=== PATIENT | male | born 1960 | race Caucasian/White ===

== ENCOUNTER → 2021-07-07 | Outpatient (CLI) | payer BC | END | disposition home or self-care (01) | LOC: RAH 10:45 | PROVIDERS: ATTEND Nurse Practitioner Family | DX: M17.0 Bilateral primary osteoarthritis of knee (principal); M71.21 Synovial cyst of popliteal space [Baker], right knee | CPT/HCPCS: 93925 ==

== ENCOUNTER → 2021-09-30 | Outpatient (CLI) | payer BC | END | disposition home or self-care (01) | LOC: RAH 14:35 | PROVIDERS: ATTEND Orthopaedic Surgery | DX: M17.12 Unilateral primary osteoarthritis, left knee (principal); M19.072 Primary osteoarthritis, left ankle and foot; M16.12 Unilateral primary osteoarthritis, left hip; M25.752 Osteophyte, left hip; M85.88 Other specified disorders of bone density and structure, other site | CPT/HCPCS: 73700 ==

== ENCOUNTER 2021-10-05 08:38 | Observation (INO) | payer BC ==
[2021-09-29 11:57] LABS: BASOPHILS % (AUTO) 0.6 % (0.0-5.0); EOSINOPHILS % (AUTO) 2.8 % (0.0-8.0); HEMATOCRIT 40.4 % (42-54); LYMPHOCYTES % (AUTO) 23.3 % (21.0-51.0); MEAN CORPUSCULAR HEMOGLOBIN 31.6 pg (27.0-33.0); MEAN CORPUSCULAR HGB CONC 33.7 g/dL (32.0-36.0); MEAN CORPUSCULAR VOLUME 93.7 fL (79-99); MONOCYTES % (AUTO) 9.1 % (3.0-13.0); NEUTROPHILS % (AUTO) 63.9 % (40.0-77.0); PLATELET COUNT (AUTO) 209 K/uL (130-400); RED BLOOD CELL COUNT(AUTO) 4.31 MIL/uL (4.50-6.20); RED CELL DISTRIBUTION WIDTH 13.1 % (11.0-15.5); WHITE BLOOD COUNT (AUTO) 9.4 K/uL (4.8-10.8)
[2021-09-29 12:10] LABS: INR 0.98 (0.85-1.15); PROTHROMBIN TIME 10.7 SEC (9.6-11.6)
[2021-09-29 12:11] LABS: CREATININE 0.7 mg/dL (0.5-1.5); PARTIAL THROMBOPLASTIN TIME 29.2 SEC (26.3-35.5); POTASSIUM 3.9 mmol/L (3.5-5.1)
[2021-10-04 11:02] VITALS: BP 156/81
[~2021-10-05] VITALS: Ht 180.3 cm; Wt 99.4 kg
[2021-10-05] VITALS (25 sets, daily range): BP systolic 119–171; BP diastolic 72–103
[2021-10-05] MEDS: CEFAZOLIN SODIUM 2 GM VIAL IV SCH ×3 (05:00→18:23)
[~2021-10-05 08:38] MED LIST: AEC81 PO; ATOR20TA PO; DULO60CA45 PO; HYDR12.54 PO; MULT-1258 PO; OMEG-116 PO
[2021-10-05] MEDS ORDERED: CEFAZOLIN SODIUM 1 GM VIAL ONE (08:52)
[2021-10-05] MEDS ORDERED: LACTATED RINGERS 1000ML 1,000 ML IV ONE (08:53)
[2021-10-05] MEDS ORDERED: PROPOFOL 10 MG/ML 20ML VIAL IV ONE (10:51)
[2021-10-05] MEDS ORDERED: FENTANYL CITRATE PF 50 MCG/1 ML 2ML VIAL ONE ×2 (10:51→14:27)
[2021-10-05] MEDS ORDERED: SUCCINYLCHOLINE CHLORIDE 20 MG/ML 10 ML VIAL ONE (10:51)
[2021-10-05] MEDS ORDERED: ROCURONIUM 10MG/1ML SYR 10 MG/ML ML ONE ×2 (10:51→11:43)
[2021-10-05] MEDS ORDERED: MIDAZOLAM HCL 1 MG/ML 2ML VIAL ONE (10:51)
[2021-10-05] MEDS ORDERED: LIDOCAINE PF 100MG/5ML (2%) SYRINGE 5ML ONE (10:51)
[2021-10-05] MEDS ORDERED: ROPIVACAINE 0.5% 5MG/ML 30ML IJ ONE (10:54)
[2021-10-05] MEDS ORDERED: TRANEXAMIC ACID 1000MG/10ML ONE ×3 (10:59)
[2021-10-05] MEDS ORDERED: MORPHINE 4 MG SYG IVP PRN (11:30)
[2021-10-05] MEDS ORDERED: HYDROCODONE/ACETAMINOPHEN 5/325 MG TAB PO PRN (11:30)
[2021-10-05] MEDS: ACETAMINOPHEN 500 MG TABLET PO SCH ×2 (11:30→20:59)
[2021-10-05] MEDS ORDERED: ONDANSETRON 4MG INJ IVP PRN (11:30)
[2021-10-05] MEDS ORDERED: 0.9%NACL 1000ML 1,000 ML IV SCH (11:30)
[2021-10-05] MEDS: TRAMADOL HCL 50 MG TABLET PO SCH ×2 (12:00→18:56)
[2021-10-05] MEDS ORDERED: GLYCOPYRROLATE 1 MG/5 ML SYRINGE ONE (12:48)
[2021-10-05] MEDS ORDERED: MEPERIDINE-PF 25 MG/ML SYG ONE ×2 (13:58→14:06)
[2021-10-05] MEDS ORDERED: KETOROLAC 30MG VIAL (30MG/ML) ONE (14:05)
[2021-10-05] MEDS ORDERED: DEXAMETHASONE SOD PHOSPHATE 10MG/ML 1ML VIAL ONE (15:22)
[2021-10-05] MEDS: FAMOTIDINE 20MG TAB PO SCH (20:58)
[2021-10-05] MEDS: CELECOXIB 200 MG CAP PO SCH (20:58)
[2021-10-05] MEDS: DULOXETINE HCL 30 MG CAP PO SCH (20:58)
[2021-10-05] MEDS: ASPIRIN 81 MG EC TAB PO SCH (20:58)
[2021-10-05] MEDS: CEFAZOLIN SODIUM 1 GM VIAL IVP SCH (21:00)
[2021-10-06 00:16] VITALS: BP 122/73
[2021-10-06] MEDS ORDERED: CEFAZOLIN SODIUM 1 GM VIAL ONE (01:58)
[2021-10-06] MEDS: CEFAZOLIN SODIUM 1 GM VIAL IVP SCH (02:12)
[2021-10-06] MEDS: ACETAMINOPHEN 500 MG TABLET PO SCH ×3 (02:12→21:09)
[2021-10-06] MEDS: TRAMADOL HCL 50 MG TABLET PO SCH ×4 (02:12→18:57)
[2021-10-06 03:58] LABS: MEAN CORPUSCULAR HEMOGLOBIN 30.9 pg (27.0-33.0); MEAN CORPUSCULAR HGB CONC 33.6 g/dL (32.0-36.0); MEAN CORPUSCULAR VOLUME 92.1 fL (79-99); RED BLOOD CELL COUNT(AUTO) 3.91 MIL/uL (4.50-6.20); RED CELL DISTRIBUTION WIDTH 12.6 % (11.0-15.5); WHITE BLOOD COUNT (AUTO) 13.1 K/uL (4.8-10.8)
[2021-10-06 04:06] LABS: CREATININE 0.7 mg/dL (0.5-1.5); POTASSIUM 3.8 mmol/L (3.5-5.1)
[2021-10-06 04:16] VITALS: BP 113/68
[2021-10-06 07:20] VITALS: BP 126/77
[2021-10-06] MEDS: CELECOXIB 200 MG CAP PO SCH ×2 (08:49→21:10)
[2021-10-06] MEDS: FAMOTIDINE 20MG TAB PO SCH ×2 (08:49→21:10)
[2021-10-06] MEDS: ASPIRIN 81 MG EC TAB PO SCH ×2 (08:49→21:10)
[2021-10-06] MEDS: POLYETHYLENE GLYCOL 3350 17 GM POWD.PACK PO SCH (08:49)
[2021-10-06] MEDS: HYDROCHLOROTHIAZIDE 25 MG TABLET PO SCH (08:50)
[2021-10-06 11:20] VITALS: BP 123/78
[2021-10-06] MEDS: HYDROCODONE/ACETAMINOPHEN 10/325 MG TAB PO PRN ×2 (13:58→21:09)
[2021-10-06 15:35] VITALS: BP 127/68
[2021-10-06] MEDS: CEFAZOLIN SODIUM 2 GM VIAL IV SCH (20:07)
[2021-10-06 20:49] VITALS: BP 114/77
[2021-10-06] MEDS: DULOXETINE HCL 30 MG CAP PO SCH (21:10)
[2021-10-07 00:32] VITALS: BP 116/72
[2021-10-07 04:37] VITALS: BP 135/73
[2021-10-07] MEDS: TRAMADOL HCL 50 MG TABLET PO SCH ×3 (05:17→12:09)
[2021-10-07] MEDS: ACETAMINOPHEN 500 MG TABLET PO SCH (05:18)
[2021-10-07 07:05] VITALS: BP 131/75
[2021-10-07] MEDS: ASPIRIN 81 MG EC TAB PO SCH (08:45)
[2021-10-07] MEDS: POLYETHYLENE GLYCOL 3350 17 GM POWD.PACK PO SCH (08:45)
[2021-10-07] MEDS: FAMOTIDINE 20MG TAB PO SCH (08:45)
[2021-10-07] MEDS: HYDROCHLOROTHIAZIDE 25 MG TABLET PO SCH (08:45)
[2021-10-07] MEDS: CELECOXIB 200 MG CAP PO SCH (08:45)
[2021-10-07] MEDS: HYDROCODONE/ACETAMINOPHEN 10/325 MG TAB PO PRN (08:47)
[2021-10-07 11:10] VITALS: BP 135/79
[2021-10-08] MEDS ORDERED: BISACODYL 10 MG SUPP.RECT RC PRN (11:30)
== END 2021-10-07 13:30 | disposition home or self-care (01) ==
LOC: DAH 08:38 → DAHIP 08:39 → 4AH 16:00
PROVIDERS: ADMIT Orthopaedic Surgery; ATTEND Orthopaedic Surgery
DX: M17.12 Unilateral primary osteoarthritis, left knee (principal); Z20.822 Contact with and (suspected) exposure to COVID-19; M21.162 Varus deformity, not elsewhere classified, left knee; E66.9 Obesity, unspecified; I10 Essential (primary) hypertension; E78.00 Pure hypercholesterolemia, unspecified; Z79.899 Other long term (current) drug therapy
CPT/HCPCS: 27447; 36415 ×2; 64445; 64447; 76942; 80048 ×2; 85025; 85027; 85610; 85730; 87635; 87641; 96374; 96376; 97039 ×3; 97116 ×2; 97161; 97530 ×3; A4213; A4215; A4221; A4222; A4223; A4649 ×4; A4663; A5120; A6260; C1776; C9803; G0168; G0378 ×45; J0330; J0690 ×4; J1100; J1885; J2001; J2175 ×2; J2250; J2704; J2795; J3010 ×2; J3490 ×4; J7030; J7120

== ENCOUNTER 2022-01-04 06:29 | Observation (INO) | payer BC ==
[2021-12-29 12:53] LABS: BASOPHILS % (AUTO) 0.4 % (0.0-5.0); EOSINOPHILS % (AUTO) 2.8 % (0.0-8.0); HEMATOCRIT 38.2 % (42-54); LYMPHOCYTES % (AUTO) 32.4 % (21.0-51.0); MEAN CORPUSCULAR HEMOGLOBIN 31.1 pg (27.0-33.0); MEAN CORPUSCULAR HGB CONC 33.2 g/dL (32.0-36.0); MEAN CORPUSCULAR VOLUME 93.4 fL (79-99); NEUTROPHILS % (AUTO) 55.3 % (40.0-77.0); PLATELET COUNT (AUTO) 201 K/uL (130-400); RED BLOOD CELL COUNT(AUTO) 4.09 MIL/uL (4.50-6.20); RED CELL DISTRIBUTION WIDTH 13.8 % (11.0-15.5); WHITE BLOOD COUNT (AUTO) 7.6 K/uL (4.8-10.8)
[2021-12-29 13:03] LABS: CREATININE 0.7 mg/dL (0.5-1.5); POTASSIUM 4.5 mmol/L (3.5-5.1)
[2021-12-29 13:05] LABS: INR 0.95 (0.85-1.15); PROTHROMBIN TIME 10.4 SEC (9.6-11.6)
[2021-12-29 13:06] LABS: PARTIAL THROMBOPLASTIN TIME 28.6 SEC (26.3-35.5)
[2021-12-31 10:25] VITALS: BP 140/75
[~2022-01-04] VITALS: Ht 177.8 cm; Wt 97.1 kg
[2022-01-04] VITALS (24 sets, daily range): BP systolic 107–144; BP diastolic 60–83
[~2022-01-04 06:29] MED LIST changes: -DULO60CA45 PO; +UBID1CAP56 PO; +VITA1CAP85 PO
[2022-01-04] MEDS ORDERED: LACTATED RINGERS 1000ML 1,000 ML IV SCH (08:00)
[2022-01-04] MEDS ORDERED: ROPIVICAINE 250MG+KETOROLAC 15MG+EPINEPHRINE 0.3+CLONIDINE 80 IV SCH ×5 (08:00)
[2022-01-04] MEDS ORDERED: CEFAZOLIN SODIUM 1 GM VIAL IVP ONE (08:00)
[2022-01-04] MEDS ORDERED: NEOSTIGMINE 5MG/5ML SYR IV ONE (10:50)
[2022-01-04] MEDS ORDERED: GLYCOPYRROLATE 1 MG/5 ML SYRINGE ONE (10:50)
[2022-01-04] MEDS ORDERED: PROPOFOL 10 MG/ML 20ML VIAL IV ONE (10:50)
[2022-01-04] MEDS ORDERED: ONDANSETRON 4MG INJ ONE (10:50)
[2022-01-04] MEDS ORDERED: SUCCINYLCHOLINE 200MG/10ML SYR ONE (10:50)
[2022-01-04] MEDS ORDERED: SUCCINYLCHOLINE CHLORIDE 20 MG/ML 10 ML VIAL ONE (10:50)
[2022-01-04] MEDS ORDERED: FENTANYL CITRATE PF 50 MCG/1 ML 2ML VIAL ONE ×2 (10:51→11:42)
[2022-01-04] MEDS ORDERED: ROCURONIUM 10MG/1ML SYR 10 MG/ML ML ONE (10:51)
[2022-01-04] MEDS ORDERED: MIDAZOLAM HCL 1 MG/ML 2ML VIAL ONE (10:51)
[2022-01-04] MEDS ORDERED: CEFAZOLIN SODIUM 2 GM VIAL IV ONE (11:00)
[2022-01-04] MEDS ORDERED: TRANEXAMIC ACID 1000MG/10ML ONE (11:11)
[2022-01-04] MEDS ORDERED: HYDROCODONE/ACETAMINOPHEN 5/325 MG TAB PO PRN (11:30)
[2022-01-04] MEDS ORDERED: MORPHINE 4 MG SYG IVP PRN (11:30)
[2022-01-04] MEDS ORDERED: ONDANSETRON 4MG INJ IVP PRN (11:30)
[2022-01-04] MEDS ORDERED: ROPIVACAINE 0.5% 5MG/ML 30ML IJ ONE (13:44)
[2022-01-04] MEDS ORDERED: MEPERIDINE-PF 25 MG/ML SYG ONE ×3 (14:14→14:50)
[2022-01-04] MEDS ORDERED: KETOROLAC 30MG VIAL (30MG/ML) ONE (14:49)
[2022-01-04] MEDS: ACETAMINOPHEN 500 MG TABLET PO SCH ×2 (16:01→18:57)
[2022-01-04] MEDS: TRAMADOL HCL 50 MG TABLET PO SCH ×2 (16:01→18:57)
[2022-01-04] MEDS: CEFAZOLIN SODIUM 1 GM VIAL IVP SCH (16:02)
[2022-01-04] MEDS: 0.9%NACL 1000ML 1,000 ML IV SCH (16:06)
[2022-01-04] MEDS: FAMOTIDINE 20MG TAB PO SCH (21:19)
[2022-01-04] MEDS: ASPIRIN 81 MG EC TAB PO SCH (21:19)
[2022-01-04] MEDS: KETOROLAC 15MG/ML VIAL (15MG/ML) IV PRN (21:28)
[2022-01-05] MEDS: TRAMADOL HCL 50 MG TABLET PO SCH ×3 (00:24→12:32)
[2022-01-05] MEDS: CEFAZOLIN SODIUM 1 GM VIAL IVP SCH (00:25)
[2022-01-05] MEDS: 0.9%NACL 1000ML 1,000 ML IV SCH (00:28)
[2022-01-05] MEDS: ACETAMINOPHEN 500 MG TABLET PO SCH ×2 (03:58→11:30)
[2022-01-05 04:25] LABS: HEMATOCRIT 32.6 % (42-54); MEAN CORPUSCULAR HEMOGLOBIN 31.2 pg (27.0-33.0); MEAN CORPUSCULAR HGB CONC 32.8 g/dL (32.0-36.0); RED BLOOD CELL COUNT(AUTO) 3.43 MIL/uL (4.50-6.20); RED CELL DISTRIBUTION WIDTH 13.9 % (11.0-15.5); WHITE BLOOD COUNT (AUTO) 9.5 K/uL (4.8-10.8)
[2022-01-05 04:35] LABS: CREATININE 0.8 mg/dL (0.5-1.5); POTASSIUM 4.1 mmol/L (3.5-5.1)
[2022-01-05 04:42] VITALS: BP 110/66
[2022-01-05] MEDS: HYDROCODONE/ACETAMINOPHEN 10/325 MG TAB PO PRN ×2 (06:23→10:36)
[2022-01-05] MEDS ORDERED: MULTIVITAMIN WITH MINERALS TABLET PO ONE (07:57)
[2022-01-05] MEDS ORDERED: HYDROCHLOROTHIAZIDE 25 MG TABLET ONE (07:57)
[2022-01-05] MEDS: ASPIRIN 81 MG EC TAB PO SCH (07:58)
[2022-01-05] MEDS: HYDROCHLOROTHIAZIDE 25 MG TABLET PO SCH ×2 (07:58→08:07)
[2022-01-05] MEDS: FAMOTIDINE 20MG TAB PO SCH (07:58)
[2022-01-05 08:00] VITALS: BP 109/60
[2022-01-05] MEDS ORDERED: POLYETHYLENE GLYCOL 3350 17 GM POWD.PACK PO SCH (09:00)
[2022-01-05] MEDS ORDERED: MULTIVITAMIN WITH MINERALS TABLET PO SCH (09:00)
[2022-01-05] MEDS: KETOROLAC 15MG/ML VIAL (15MG/ML) IV PRN (09:04)
[2022-01-05 12:00] VITALS: BP 119/66
[2022-01-07] MEDS ORDERED: BISACODYL 10 MG SUPP.RECT RC PRN (11:30)
== END 2022-01-05 13:57 | disposition home or self-care (01) ==
LOC: DAH 06:29 → DAHIP 06:30 → 4BH 15:42
PROVIDERS: ADMIT Orthopaedic Surgery; ATTEND Orthopaedic Surgery
DX: M17.11 Unilateral primary osteoarthritis, right knee (principal); Z20.822 Contact with and (suspected) exposure to COVID-19; E66.9 Obesity, unspecified; M21.751 Unequal limb length (acquired), right femur; M24.551 Contracture, right hip; Z88.0 Allergy status to penicillin; Z79.899 Other long term (current) drug therapy
CPT/HCPCS: 0055T; 27447; 36415; 64447; 76942; 80048; 85025; 85027; 85610; 85730; 87635; 87641; 93005; 96374; 96375; 96376; 97039; C9803; G0378; J0171; J0330; J0690; J0735; J1885; J2175; J2250; J2405; J2704; J2710; J2795; J3010; J3490; J7030; J7120

== ENCOUNTER → 2024-12-02 | Outpatient (CLI) | payer MEDICARE ==
[~2024-12-02] MED LIST changes: +IOHEXOL-350 75 ML VIAL IV ONE; -MULT-1258 PO; -OMEG-116 PO; -UBID1CAP56 PO; -VITA1CAP85 PO
--- NOTE | 2024-12-02 10:44 | HMCIMG ---
CT ABDOMEN/PELVIS W/WO CONTRAS REASON: Other specified disorders of kidney and ureter COMPARISON: None TECHNIQUE: Images are obtained from lung bases to symphysis pubis following oral and IV contrast. IV contrast volume was 75 cc Omnipaque [id number]. FINDINGS: Lung bases are clear. There are no focal liver lesions. Liver does not appear enlarged.. Spleen and pancreas appear unremarkable. There are multiple stones in an otherwise normal-appearing gallbladder. There are 2 adjacent small cysts versus a single septated cyst visible in the upper pole of the right kidney, 2 adjacent cysts favored. These measure 2.5 cm in aggregate. There is no associated solid mass. There is no abnormal contrast enhancement. Kidneys appear otherwise unremarkable. Bowel loops appear unremarkable. This includes normal appearance of the appendix There is no evidence of free fluid or intraperitoneal air. There are no focal fluid collections. Aorta and retroperitoneum appear normal as do pelvic soft tissue structures. The anterior abdominal wall is intact. Osseous structures appear unremarkable. IMPRESSION: 1. 2 adjacent simple cysts in the upper pole of the left kidney, these measure 2.5 cm in aggregate, no evidence of soft tissue mass or neoplasm. 2. Cholelithiasis without evidence of acute cholecystitis. CT was performed with one or more following dose reduction techniques: automated exposure control, adjustment of the mA and kv according to patient's size, or use of a iterative reconstruction technique.
== END | disposition home or self-care (01) ==
LOC: RAH 09:43
PROVIDERS: ATTEND Internal Medicine
DX: N28.1 Cyst of kidney, acquired (principal); K80.20 Calculus of gallbladder without cholecystitis without obstruction; N28.89 Other specified disorders of kidney and ureter
CPT/HCPCS: 74178; Q9967